=== PATIENT | male | born 1985 | race Caucasian/White ===

== ENCOUNTER 2017-03-04 11:27 | Emergency (ER) | payer SELFPAY ==
[~2017-03-04] VITALS: Ht 170.2 cm; Wt 59.0 kg
[~2017-03-04 11:27] MED LIST: AMOX500C PO; IBUP800T PO
--- NOTE | 2017-03-04 12:09 | ED.ADGEN ---
Past History Past Medical History: Asthma Past Surgical History: No Surgical History Alcohol Use: Rarely Drug Use: Marijuana Adult General Chief Complaint Chief Complaint Dental pain HPI HPI Patient is a 31 year old female who presents with. He states this started 2 weeks ago but this got worse overnight. He denies any trismus or trouble swallowing or breathing. He has had some subjective fevers but no chills. He does not have insurance but is trying to get into see a dentist. He denies any other concerns at this time. Review of Systems Review of Systems Constitutional: Denies fever or chills [] Eyes: Denies change in visual acuity, redness, or eye pain [] HENT: Denies nasal congestion or sore throat [] Respiratory: Denies cough or shortness of breath [] Cardiovascular: No additional information not addressed in HPI [] GI: Denies abdominal pain, nausea, vomiting, bloody stools or diarrhea [] : Denies dysuria or hematuria [] Musculoskeletal: Denies back pain or joint pain [] Integument: Denies rash or skin lesions [] Neurologic: Denies headache, focal weakness or sensory changes [] Endocrine: Denies polyuria or polydipsia [] Allergies Allergies Allergies Coded Allergies Type Severity Reaction Last Updated Verified vancomycin Allergy Severe Rash 12/09/15 Yes Physical Exam Physical Exam Constitutional: Well developed, well nourished, no acute distress, non-toxic appearance. [] HENT: Normocephalic, atraumatic, bilateral external ears normal, oropharynx moist, no oral exudates, nose normal dental caries on tooth #18 and #7 with obvious tooth decay, no apical abscesses appreciated, no Ankit's, posterior pharynx clear. [] Eyes: PERRLA, EOMI, conjunctiva normal, no discharge. [] Neck: Normal range of motion, no tenderness, supple, no stridor. [] Cardiovascular:Heart rate regular rhythm, no murmur [] Lungs & Thorax: Bilateral breath sounds clear to auscultation [] Abdomen: Bowel sounds normal, soft, no tenderness, no masses, no pulsatile masses. [] Skin: Warm, dry, no erythema, no rash. [] Back: No tenderness, no CVA tenderness. [] Extremities: No tenderness, no cyanosis, no clubbing, ROM intact, no edema. [] Neurologic: Alert and oriented X 3, normal motor function, normal sensory function, no focal deficits noted. [] Psychologic: Affect normal, judgement normal, mood normal. [] EKG EKG [] Radiology/Procedures Radiology/Procedures [] Course & Med Decision Making Course & Med Decision Making Pertinent Labs and Imaging studies reviewed. (See chart for details) He has no concerning signs or symptoms, we will discharge with Pen-Vee K 500 mg every 6 for 7 days and [place] one or 2 tablets every 6 hours #12, return precautions given for fevers, severe pain, trismus or other concerns. He is to follow up with dentist within the next week. Final Impression Final Impression Dental caries Problems: Dragon Disclaimer Dragon Disclaimer This electronic medical record was generated, in whole or in part, using a voice recognition dictation system. RADHA ROSE MD March 04, 2017 12:09
[2017-03-04] MEDS ORDERED: HYDR-971 PO (12:12)
[2017-03-04] MEDS ORDERED: PENI500T PO (12:12)
[2017-03-04 12:20] VITALS: BP 124/75
== END 2017-03-04 12:20 | disposition home or self-care (01) ==
LOC: ER 11:27
DX: K02.9 Dental caries, unspecified (principal); J45.909 Unspecified asthma, uncomplicated; F12.10 Cannabis abuse, uncomplicated; Z88.1 Allergy status to other antibiotic agents
CPT/HCPCS: 99283

== ENCOUNTER 2017-10-02 09:26 | Emergency (ER) | payer SELFPAY ==
[~2017-10-02] VITALS: Ht 170.2 cm; Wt 58.6 kg
[~2017-10-02 09:26] MED LIST changes: +HYDR-971 PO; -IBUP800T PO; +IBUP800T19 PO; +PENI500T PO
[2017-10-02] MEDS ORDERED: PENI250T85 PO (09:56)
--- NOTE | 2017-10-02 09:56 | PHYS DOC ---
Past History Past Medical History: Asthma Past Surgical History: No Surgical History Alcohol Use: Rarely Drug Use: Marijuana Adult General Chief Complaint Chief Complaint: DENTAL PROBLEM HPI HPI Patient is a 32-year-old male who presents ambulatory to the ED with the complaint of dental pain for about one week. It's been worse for the last day or 2. He does have an appointment coming up in 2 weeks at [facility], he says they can 't get him in any sooner. He has been taking ibuprofen 400 mg every 6-8 hours without relief. Review of Systems Review of Systems Constitutional: Denies fever or chills [] All other systems were reviewed and found to be within normal limits, except as documented in this note. Allergies Allergies Allergies Coded Allergies Type Severity Reaction Last Updated Verified vancomycin Allergy Severe Rash 12/09/15 Yes Physical Exam Physical Exam Constitutional: Well developed, well nourished, no acute distress, non-toxic appearance. Talking without difficulty, swallowing without difficulty, handling his secretions normally. HENT: Normocephalic, atraumatic, bilateral external ears normal, oropharynx moist, nose normal. Patient has diffuse very poor dentition. The area of pain today is on the left mandible second molar. It is approximately 75% gone due to caries and fracture. The left third molar is half erupted and coming and horizontally. Various other teeth are fractured off at the gumline or severely fractured. There is no evidence of periapical abscess, no significant gingival swelling, no evidence of acute infection. Eyes: conjunctiva normal, no discharge. [] Neck: Normal range of motion, no tenderness, supple, no stridor. [] Skin: Warm, dry, no erythema, no rash. [] Extremities: No tenderness, no cyanosis, no clubbing, ROM intact, no edema. [] Neurologic: Alert and oriented X 3, normal motor function, no focal deficits noted. [] EKG EKG [] Radiology/Procedures Radiology/Procedures [] Course & Med Decision Making Course & Med Decision Making Pertinent Labs and Imaging studies reviewed. (See chart for details) [] Dragon Disclaimer Dragon Disclaimer This electronic medical record was generated, in whole or in part, using a voice recognition dictation system. Departure Departure: Impression: Primary Impression: Pain, dental Additional Impressions: Dental caries Poor dentition Disposition: 01 HOME, SELF-CARE Condition: STABLE Referrals: PCP,NO (PCP) Patient Instructions: Dental Abscess Additional Instructions: As we discussed, it's very important to see a dentist for treatment of your dental problems. Keep your appointment, see if you can get an appointment sooner. I prescribed penicillin, antibiotic, to help with the infection that is probably contributing to your pain. Take as directed. Ibuprofen 800 mg every 8 hours as needed with food, you may use over-the- counter ibuprofen for pain. Scripts Penicillin V Potassium (PENICILLIN V POTASSIUM) 250 Mg Tablet 1 TAB PO QID for dental pain/infection, #40 TAB Prov: MONAE CABRERA MD 10/02/17 Problem Qualifiers MONAE CABRERA MD Oct 02, 2017 09:56
[2017-10-02 10:10] VITALS: BP 122/84
== END 2017-10-02 10:10 | disposition home or self-care (01) ==
LOC: ER 09:26
DX: K02.9 Dental caries, unspecified (principal); J45.909 Unspecified asthma, uncomplicated; F12.10 Cannabis abuse, uncomplicated; Z88.1 Allergy status to other antibiotic agents
CPT/HCPCS: 99283